=== PATIENT | male | born 1965 | race Caucasian/White ===

== ENCOUNTER 2021-03-03 13:25 | Emergency (ER) | payer OTHER ==
[~2021-03-03] VITALS: Ht 177.8 cm; Wt 119.3 kg
[~2021-03-03 13:25] MED LIST: AMBIEN5 MG; CLONAZEPAM2 MG; HUMALOG100 U/ML SQ; KLONOPIN2 MG/TAB; LANTUS100 U/ML; LEXAPRO20 MG; NEURONTIN300 MG PO; SEROQUEL300 MG PO; SEROQUEL400 MG; TRAZODONE HCL50 MG
[2021-03-03] MEDS ORDERED: BUSPIRONE HCL7.5 MG (13:31)
[2021-03-03] MEDS ORDERED: DEPAKOTE ER250 MG (13:31)
== END 2021-03-03 21:14 | disposition home or self-care (01) ==
LOC: ER 13:25
DX: E11.649 Type 2 diabetes mellitus with hypoglycemia without coma (principal)

== ENCOUNTER 2021-07-21 23:35 | Emergency (ER) | payer OTHER ==
[~2021-07-21] VITALS: Ht 177.8 cm; Wt 117.9 kg
[~2021-07-21 23:35] MED LIST changes: +BUSPIRONE HCL7.5 MG; +DEPAKOTE ER250 MG
[2021-07-21] MEDS ORDERED: LANTUS SOL100 UNIT/1 (23:45)
[2021-07-22] MEDS ORDERED: PROTECT PLUS S1 EACH PO (04:24)
[2021-07-22] MEDS ORDERED: MECLIZINE HCL25 MG PO (04:24)
== END 2021-07-22 04:27 ==
LOC: ER 23:35
DX: H81.10 Benign paroxysmal vertigo, unspecified ear (principal); R53.1 Weakness; R42 Dizziness and giddiness

== ENCOUNTER 2022-11-17 08:36 | Emergency (ER) | payer OTHER ==
[~2022-11-17] VITALS: Ht 177.8 cm; Wt 90.7 kg
[~2022-11-17 08:36] MED LIST changes: +LANTUS SOL100 UNIT/1; +MECLIZINE HCL25 MG PO; +PROTECT PLUS S1 EACH PO
== END 2022-11-17 12:21 | disposition home or self-care (01) ==
LOC: ER 08:36
DX: T14.8XXA Other injury of unspecified body region, initial encounter (principal); W18.30XA Fall on same level, unspecified, initial encounter; Y93.89 Activity, other specified; Y92.018 Other place in single-family (private) house as the place of occurrence of the external cause; Y99.9 Unspecified external cause status; E11.9 Type 2 diabetes mellitus without complications; Z79.4 Long term (current) use of insulin

== ENCOUNTER 2023-01-11 19:48 | Emergency (ER) | payer OTHER ==
[~2023-01-11] VITALS: Ht 177.8 cm; Wt 120.2 kg
== END 2023-01-12 00:10 | disposition home or self-care (01) ==
LOC: ER 19:48
DX: R73.9 Hyperglycemia, unspecified (principal); I10 Essential (primary) hypertension

== ENCOUNTER 2023-10-25 10:11 | Inpatient (IN) | payer OTHER ==
[~2023-10-25] VITALS: Ht 167.6 cm; Wt 104.3 kg
[~2023-10-25 10:11] MED LIST changes: +GABAPENTIN300 M2 PO
[2023-10-25 11:58] LABS: HEMATOCRIT 42.5 % (39.0-48.0); HEMOGLOBIN 13.3 g/dL (13-16.00); MEAN CELL VOLUME 89.5 fL (80.0-100.00); MEAN CORPUSCULAR HGB CONC 31.2 g/dl (32.0-36.0); PLATELET COUNT 273 K/uL (150-450); RED BLOOD COUNT 4.75 M/uL (4.00-6.00); RED CELL DISTRIBUTION WIDTH 15.2 % (11.5-14.5)
[2023-10-25 12:39] LABS: CALCIUM 9.6 mg/dL (8.5-10.1); CREATININE SERUM 1.96 mg/dL (0.70-1.30); GFR 35.06; POTASSIUM 5.55 mEq/L (3.5-5.1)
[2023-10-25 13:45] LABS: URINE APPEARANCE Clear; URINE BILIRRUBIN Negative (NEGATIVE); URINE BLOOD Negative; URINE COLOR Yellow; URINE LEUKOCYTE Negative; URINE NITRATE Negative; URINE PROTEIN Negative (NEGATIVE); URINE UROBILINOGEN 0.2 E.U./dl
[2023-10-25 13:49] LABS: URINE BACTERIA 12.5 uL (0.0-1933); URINE WBC 3.8 uL (0.0-23.2)
[2023-10-25 14:09] LABS: URINE GLUCOSE >=1000 MG/DL (NEGATIVE); URINE RBC 0.7 uL (0.0-20.8)
[2023-10-25 15:30] LABS: ABG PH 7.216 (7.35-7.45); ABG PO2 142.5 mmHg (80-100); ABG pCO2 16.5 mmHg (35-45); BASE EXCESS -18.6 mmol/l; BICARBONATE 6.6 mmol/l (23-25); SaO2 98.2 %; Tco2 7.1 mmol/l; allen test SATISFACTORY; o2 21 %; puncture site RADIAL LEFT
[2023-10-25 17:35] LABS: CALCIUM 8.9 mg/dL (8.5-10.1); CREATININE SERUM 1.78 mg/dL (0.70-1.30); GFR 39.18; POTASSIUM 3.58 mEq/L (3.5-5.1)
[2023-10-25 19:40] LABS: COCAINE NEGATIVE (NEGATIVE); METHADONE NEGATIVE (NEGATIVE); OPIATES NEGATIVE (NEGATIVE); THC ( Cannabinoids) NEGATIVE (NEGATIVE)
[2023-10-25 20:09] LABS: CREATININE SERUM 1.76 mg/dL (0.70-1.30); GFR 39.7; POTASSIUM 3.46 mEq/L (3.5-5.1)
[2023-10-25 20:14] LABS: INR 0.98; PROTHROMBIN TIME 10.3 SECONDS (9.0-11.5)
[2023-10-25 20:16] LABS: PARTIAL THROMBOPLASTIN TIME < 20.0 SECONDS (22.0-34.0)
[2023-10-26 05:03] LABS: ABG PO2 92.3 mmHg (80-100); ABG pCO2 37.2 mmHg (35-45); BASE EXCESS -1.8 mmol/l; BICARBONATE 22.5 mmol/l (23-25); SaO2 97.1 %; Tco2 23.7 mmol/l
[2023-10-26 05:04] LABS: allen test SATISFACTORY; o2 21 %; puncture site RADIAL LEFT
[2023-10-26 05:09] LABS: HEMATOCRIT 34.8 % (39.0-48.0); HEMOGLOBIN 11.8 g/dL (13-16.00); MEAN CELL VOLUME 84.1 fL (80.0-100.00); MEAN CORPUSCULAR HEMOGLOBIN 28.6 pg (27.00-32.0); PLATELET COUNT 253 K/uL (150-450); RED BLOOD COUNT 4.14 M/uL (4.00-6.00); RED CELL DISTRIBUTION WIDTH 14.3 % (11.5-14.5)
[2023-10-26 05:38] LABS: ALBUMIN 2.9 gm/dL (3.4-5.0); ALKALINE PHOSPHATASE 76 U/L (50-136); ALT/SGPT 15 U/L (12-78); AMYLASE 44 U/L (25-115); AST/SGOT 14 U/L (15-37); BILIRUBIN TOTAL 0.39 mg/dL (0.3-1.2); BILIRUBIN,CONJUGATED < 0.10 mg/dL (0.0-0.2); BILIRUBIN,UNCONJUGATED 0.29 mg/dL (0.0-0.6); LIPASE 41 U/L (13-75); PHOSPHOROUS 2.7 mg/dL (2.5-4.9); T4 FREE 0.93 NG/ML (0.76-1.46); TOTAL PROTEIN 5.7 gm/dL (6.4-8.2)
[2023-10-26 06:05] LABS: CHOL HDL RATIO 2.9 (0-5.0); CHOLESTEROL 174 mg/dL (0-200); HDL 59 mg/dl (40-60); LDL 94 mg/dl (0-130); TRIGLYCERIDES 103 mg/dL (0-150); VLDL 20 (0-39)
[2023-10-26 09:46] LABS: CALCIUM 8.5 mg/dL (8.5-10.1); CREATININE SERUM 1.35 mg/dL (0.70-1.30); GFR 53.91; POTASSIUM 3.74 mEq/L (3.5-5.1)
[2023-10-27 06:59] LABS: CALCIUM 8.6 mg/dL (8.5-10.1); CREATININE SERUM 1.14 mg/dL (0.70-1.30); GFR 65.52; POTASSIUM 3.74 mEq/L (3.5-5.1)
[2023-10-28 20:45] LABS: CALCIUM 8.2 mg/dL (8.5-10.1); CREATININE SERUM 0.84 mg/dL (0.70-1.30); GFR 93.21; POTASSIUM 3.72 mEq/L (3.5-5.1)
[2023-10-29] MEDS ORDERED: HUMULIN N100 UNIT/2 SUBCUTANEO ×2 (16:17)
[2023-10-29] MEDS ORDERED: SEROQUEL300 MG PO (16:17)
[2023-10-29] MEDS ORDERED: BUSPIRONE HCL7.5 MG PO (16:18)
[2023-10-29] MEDS ORDERED: DEPAKOTE ER250 MG PO (16:18)
[2023-10-29] MEDS ORDERED: CLONAZEPAM2 MG PO (16:18)
[2023-10-29] MEDS ORDERED: INSULIN LI100 UNIT/1 SUBCUTANEO (16:20)
== END 2023-10-29 18:00 | disposition home or self-care (01) | DRG 638 ==
LOC: ER 10:11 → ICU-2 18:43 → MEDJ 10-27 14:58 → MEDI 10-27 15:38
PROVIDERS: General Practice; Internal Medicine; Internal Medicine Endocrinology, Diabetes & Metabolism; ADMIT Internal Medicine; ATTEND Internal Medicine
DX: E10.10 Type 1 diabetes mellitus with ketoacidosis without coma (principal); F31.89 Other bipolar disorder; N17.8 Other acute kidney failure; I10 Essential (primary) hypertension; E86.0 Dehydration; E16.0 Drug-induced hypoglycemia without coma

== ENCOUNTER 2025-01-10 12:14 | Inpatient (IN) | payer OTHER ==
[~2025-01-10] VITALS: Ht 175.3 cm; Wt 1179.3 kg
[~2025-01-10 12:14] MED LIST changes: +BUSPIRONE HCL7.5 MG PO; +CLONAZEPAM2 MG PO; +DEPAKOTE ER250 MG PO; +HUMULIN N100 UNIT/2 SUBCUTANEO; +INSULIN LI100 UNIT/1 SUBCUTANEO
[2025-01-10] MEDS ORDERED: LABETALOL HCL 100 MG/20 ML ML ONE (12:21)
[2025-01-10] MEDS ORDERED: LEVALBUTEROL HCL 1.25 MG/3 ML SOLUTION IH ONE (12:27)
[2025-01-10] MEDS ORDERED: PIPERACILLIN/TAZOBACTAM SODIUM 3.375 GM VIAL IV ONE ×2 (12:28→12:30)
[2025-01-10] MEDS ORDERED: IPRATROPIUM BROMIDE 0.5 MG/2.5 ML AMPUL.NEB IH ONE (12:28)
[2025-01-10] MEDS ORDERED: METHYLPREDNISOLONE SOD SUCC 125 MG VIAL IV ONE (12:30)
[2025-01-10] MEDS ORDERED: 0.9 % SODIUM CHLORIDE 1,000 ML IV SCH ×2 (12:30→18:15)
[2025-01-10] MEDS ORDERED: IPRATROPIUM BROMIDE 0.5 MG/2.5 ML AMPUL.NEB IH SCH ×2 (12:30→22:39)
[2025-01-10] MEDS ORDERED: LABETALOL HCL 20MG/4ML SYRINGE IV ONE (12:30)
[2025-01-10] MEDS ORDERED: FAMOtidine 10 MG/ML (4ML VIAL) IV ONE (12:30)
[2025-01-10] MEDS ORDERED: LEVALBUTEROL HCL 1.25 MG/3 ML SOLUTION IH SCH (12:30)
--- NOTE | 2025-01-10 13:02 | NUR ---
SE RECIBE PTE ALERTA Y ORIENTADO SOLO EN PERSONA, ACOMPANADO DE ENFERMERO PERSONAL (CUIDADOR PRINCIPAL), QUIENES EN VIENEN EN AMBULANCIA POR HIPOACTIVIDAD E HIPERVENTILACION EN HOGAR DE RESICENCIA. SE OBSERVA PTE CON CANULA NASAL, MIRADA PERDIDA, RESPONDE A ESTIMULO VERBAL, ESTIMULO DE DOLOR, EXTREMIDADES SUPERIORES CON POCO MOVIMIENTOS, RESPIRACIONES ABDOMINALES Y PROFUNDAS, EXTREMIDADES INFERIORES RIGIDAS. SE CONECTA A MONITOR CARDIACO Y OXIMETRIA DE PULSO CONTINUA, SE REALIZAN VENOPUNCIONES PARA JESUS MANUEL DE MUESTRA, SE CANALIZA X2 EN AMBOS BRAZOS, CON ANGIOS #20, PATENTES, LIBRES DE EDEMA Y ERITEMA, SE COLOCA IV FLUIDS Y MEDICAMENTO ANDREY ORDEN MEDICA Y BAJO MEDIDAS ASEPTICAS. SE REALIZA EKG Y SE PRESENTA A DRA. RINCON. SE MANTIENE BAJO OBSERVACION POR CAMBIOS SIGNIFICATIVOS.
[2025-01-10 13:24] LABS: HEMOGLOBIN 15.8 g/dL (13-16.00); MEAN CELL VOLUME 91.1 fL (80.0-100.00); MEAN CORPUSCULAR HEMOGLOBIN 29.4 pg (27.00-32.0); MEAN CORPUSCULAR HGB CONC 32.3 g/dl (32.0-36.0); PLATELET COUNT 370 K/uL (150-450); RED BLOOD COUNT 5.38 M/uL (4.00-6.00); RED CELL DISTRIBUTION WIDTH 15.5 % (11.5-14.5)
[2025-01-10] MEDS ORDERED: DEPAKOTE ER500 MG PO (13:30)
[2025-01-10] MEDS ORDERED: GRALISE600 MG PO (13:30)
[2025-01-10] MEDS ORDERED: CLONAZEPAM1 MG PO (13:31)
[2025-01-10] MEDS ORDERED: LIPITOR40 M1 PO (13:31)
[2025-01-10] MEDS ORDERED: JARDIANCE10 MG PO (13:32)
[2025-01-10] MEDS ORDERED: XULTOPHY 100 UNI3 ML SUBCUTANEO (13:35)
[2025-01-10] MEDS ORDERED: HUMULIN R100 UNIT/1 SUBCUTANEO (13:37)
[2025-01-10] MEDS ORDERED: RISPERDAL2 MG PO (13:37)
[2025-01-10 13:38] LABS: PH,URINE 5.5 (5.0-8.0); URINE APPEARANCE Clear; URINE BILIRRUBIN Negative (NEGATIVE); URINE BLOOD Negative; URINE COLOR Yellow; URINE LEUKOCYTE Negative; URINE NITRATE Negative; URINE PROTEIN 30 (NEGATIVE); URINE UROBILINOGEN 0.2 E.U./dl
[2025-01-10 13:42] LABS: URINE BACTERIA 30.5 uL (0.0-1933); URINE CAST 2.65 uL (0.0-1.40); URINE EPITHELIAL CELLS 3.1 uL (0.0-38.8); URINE WBC 3.6 uL (0.0-23.2)
[2025-01-10 13:46] LABS: ERYTHROCYTE SEDIMENTATION RATE 22 mm/hr
[2025-01-10 13:49] LABS: INR 0.95; PARTIAL THROMBOPLASTIN TIME 29.9 SECONDS (22.0-34.0); PROTHROMBIN TIME 10.4 SECONDS (9.0-11.5)
[2025-01-10 13:51] LABS: URINE GLUCOSE >=1000 MG/DL (NEGATIVE); URINE KETONE >=160 (NEGATIVE); URINE RBC 0.4 uL (0.0-20.8)
--- NOTE | 2025-01-10 14:16 | NUR ---
PERSONAL DE RADIOGRAFIA REALIZA ESTUDIOS PENDIENTES.
[2025-01-10] MEDS ORDERED: INSULIN LISPRO 1,000 UNIT/10 ML UNITS SUBCUTANEO STA (14:29)
[2025-01-10 14:45] LABS: ALBUMIN 3.3 gm/dL (3.4-5.0); BILIRUBIN TOTAL 0.6 mg/dL (0.3-1.2); CALCIUM 9.8 mg/dL (8.5-10.1); CREATININE SERUM 1.39 mg/dL (0.70-1.30); GFR 51.78; GLOBULINA 3.4 G/DL (2.4-3.5); POTASSIUM 4.61 mEq/L (3.5-5.1); TOTAL PROTEIN 6.7 gm/dL (6.4-8.2)
[2025-01-10 14:47] LABS: ABG PH 7.138 (7.35-7.45)
[2025-01-10 14:48] LABS: ABG PO2 147.5 mmHg (80-100); ABG pCO2 7.5 mmHg (35-45); BASE EXCESS -23.7 mmol/l; BICARBONATE 2.5 mmol/l (23-25); SaO2 97.9 %; Tco2 2.7 mmol/l; allen test SATISFACTORY; o2 21 %; puncture site RADIAL RIGHT
[2025-01-10 15:01] LABS: C-REACTIVE PROTEIN 3.74 MG/DL (0.00-0.29)
[2025-01-10] MEDS ORDERED: DEXTROSE 50 % IN WATER 0.5 G/ML DISP.SYRIN IV ONE (17:35)
[2025-01-10] MEDS ORDERED: SODIUM BICARBONATE 50MEQ/50ML VIAL IV ONE ×2 (17:35→23:45)
[2025-01-10] MEDS ORDERED: INSULIN REGULAR, HUMAN 100 UNITS in 0.9 % SODIUM CHLORIDE 100 ML IV SCH (18:00)
[2025-01-10] MEDS ORDERED: SODIUM BICARBONATE 100 MEQ in DEXTROSE 5 % IN WATER 1,000 ML IV SCH (18:00)
[2025-01-10] MEDS ORDERED: SODIUM BICARBONATE 1 MEQ/ML DISP.SYRIN 50ML IV ONE (18:00)
[2025-01-10] MEDS ORDERED: POTASSIUM CHLORIDE/NACL 0.9% 1,000 ML IV NR (18:00)
[2025-01-10] MEDS ORDERED: ENOXAPARIN SODIUM 40 MG/0.4 ML SYRINGE SUBCUTANEO SCH (18:01)
[2025-01-10] MEDS ORDERED: ACETAMINOPHEN 500 MG GEL..CAP PO PRN (18:15)
[2025-01-10] MEDS ORDERED: PIPERACILLIN/TAZOBACTAM SODIUM 3.375 GM in DEXTROSE 5 % IN WATER 100 ML IV SCH (18:16)
[2025-01-10] MEDS ORDERED: DIVALPROEX SODIUM 500 MG TABLET.DR PO SCH (18:17)
[2025-01-10] MEDS ORDERED: ONDANSETRON HCL 4 MG in 0.9 % SODIUM CHLORIDE 50 ML IV PRN (18:30)
[2025-01-10 19:00] VITALS: BP 139/74; O2SAT 100
[2025-01-10] MEDS ORDERED: POTASSIUM CHLORIDE/NACL 0.9% 20 MEQ/1,000 ML PIGGYBAG IV ONE (19:27)
[2025-01-10 20:00] VITALS: BP 117/63; O2SAT 100
[2025-01-10 20:43] VITALS: BP 117/63
[2025-01-10 21:00] VITALS: BP 112/69; O2SAT 100
[2025-01-10] MEDS ORDERED: ENOXAPARIN SODIUM 40 MG/0.4 ML SYRINGE SUBCUTANEO ONE (21:24)
[2025-01-10 21:46] LABS: MAGNESIUM 1.6 mg/dL (1.8-2.4); PHOSPHOROUS 2.7 mg/dL (2.5-4.9)
[2025-01-10 22:00] VITALS: BP 124/66; O2SAT 100
[2025-01-10 22:10] LABS: CALCIUM 9.2 mg/dL (8.5-10.1); CREATININE SERUM 1.11 mg/dL (0.70-1.30); GFR 67.12; POTASSIUM 3.07 mEq/L (3.5-5.1)
[2025-01-10 22:29] LABS: ABG PH 7.304 (7.35-7.45); ABG PO2 192.7 mmHg (80-100); ABG pCO2 19.2 mmHg (35-45)
[2025-01-10 22:30] LABS: BASE EXCESS -14.4 mmol/l; BICARBONATE 9.3 mmol/l (23-25); Tco2 9.9 mmol/l; allen test SATISFACTORY; o2 32 %; puncture site RADIAL LEFT
[2025-01-10 22:32] LABS: SaO2 99.5 %
[2025-01-10] MEDS ORDERED: SODIUM CHLORIDE 0.45 % 1,000 ML IV SCH (22:45)
[2025-01-11] MEDS ORDERED: PIPERACILLIN/TAZOBACTAM SODIUM 3.375 GM VIAL IV ONE (00:01)
[2025-01-11 01:04] LABS: COCAINE NEGATIVE (NEGATIVE); METHADONE NEGATIVE (NEGATIVE); OPIATES NEGATIVE (NEGATIVE); THC ( Cannabinoids) POSITIVE (NEGATIVE)
[2025-01-11 04:43] VITALS: BP 118/69; O2SAT 100
[2025-01-11 06:49] LABS: HEMOGLOBIN 13.8 g/dL (13-16.00); MEAN CELL VOLUME 85.3 fL (80.0-100.00); MEAN CORPUSCULAR HEMOGLOBIN 29.4 pg (27.00-32.0); MEAN CORPUSCULAR HGB CONC 34.5 g/dl (32.0-36.0); PLATELET COUNT 262 K/uL (150-450); RED BLOOD COUNT 4.69 M/uL (4.00-6.00); RED CELL DISTRIBUTION WIDTH 14.8 % (11.5-14.5)
[2025-01-11 07:21] VITALS: BP 126/75; O2SAT 100
[2025-01-11 07:41] LABS: ALBUMIN 2.6 gm/dL (3.4-5.0); BILIRUBIN TOTAL 0.3 mg/dL (0.3-1.2); CALCIUM 8.6 mg/dL (8.5-10.1); CREATININE SERUM 1.08 mg/dL (0.70-1.30); GFR 69.28; GLOBULINA 2.6 G/DL (2.4-3.5); POTASSIUM 3.37 mEq/L (3.5-5.1); TOTAL PROTEIN 5.2 gm/dL (6.4-8.2); TSH 0.909 uIU/mL (0.358-3.74)
[2025-01-11] MEDS ORDERED: FAMOTIDINE/PF 20 MG in 0.9 % SODIUM CHLORIDE 8 ML IV PUSH SCH (09:00)
[2025-01-11] MEDS ORDERED: RISPERIDONE 1 MG TABLET PO SCH (09:00)
[2025-01-11] MEDS ORDERED: DEXTROSE 50 % IN WATER 0.5 G/ML DISP.SYRIN IV PRN (09:45)
[2025-01-11] MEDS ORDERED: INSULIN LISPRO 1,000 UNIT/10 ML UNITS SUBCUTANEO PRN (09:45)
[2025-01-11 12:12] VITALS: BP 121/72; O2SAT 98
[2025-01-11] MEDS ORDERED: MAGNESIUM SULFATE IN WATER 2 GM/50 ML PIGGYBAG IV NR (15:15)
[2025-01-11 15:25] VITALS: BP 130/76; O2SAT 99
[2025-01-11] MEDS ORDERED: CHLORHEXIDINE GLUCONATE 120 ML BOTTLE TOP SCH (17:00)
[2025-01-11] MEDS ORDERED: LINEZOLID IN DEXTROSE 5% 600 MG/300 ML PIGGYBAG IV NR (17:00)
[2025-01-11] MEDS ORDERED: POTASSIUM BICARBONATE/CIT AC 25 MEQ TABLET.EFF PO SCH (17:00)
[2025-01-11] MEDS ORDERED: LEVALBUTEROL HCL 0.63 MG/3 ML SOLUTION IH SCH (18:00)
[2025-01-11 18:26] LABS: ABG PH 7.363 (7.35-7.45); ABG PO2 87.6 mmHg (80-100); ABG pCO2 34.8 mmHg (35-45); BASE EXCESS -5.1 mmol/l; BICARBONATE 19.4 mmol/l (23-25); SaO2 96.1 %; Tco2 20.4 mmol/l
[2025-01-11 18:32] LABS: allen test SATISFACTORY; o2 21 %; puncture site RADIAL LEFT
[2025-01-11] MEDS ORDERED: ASPIRIN 81 MG TAB.CHEW PO SCH (19:45)
[2025-01-11 20:00] VITALS: BP 131/79; O2SAT 100
[2025-01-11 23:27] VITALS: BP 131/89; O2SAT 99
[2025-01-12] VITALS (7 sets, daily range): BP systolic 131–171; BP diastolic 78–95; O2SAT 95–99
[2025-01-12] MEDS ORDERED: LINEZOLID IN DEXTROSE 5% 600 MG/300 ML PIGGYBAG IV SCH (05:00)
[2025-01-12 07:34] LABS: HEMATOCRIT 39.7 % (39.0-48.0); HEMOGLOBIN 13.2 g/dL (13-16.00); MEAN CELL VOLUME 86.7 fL (80.0-100.00); MEAN CORPUSCULAR HEMOGLOBIN 28.9 pg (27.00-32.0); MEAN CORPUSCULAR HGB CONC 33.4 g/dl (32.0-36.0); PLATELET COUNT 244 K/uL (150-450); RED BLOOD COUNT 4.58 M/uL (4.00-6.00); RED CELL DISTRIBUTION WIDTH 14.5 % (11.5-14.5)
[2025-01-12 08:03] LABS: ALBUMIN 2.5 gm/dL (3.4-5.0); CALCIUM 8.5 mg/dL (8.5-10.1); CREATININE SERUM 0.83 mg/dL (0.70-1.30); GFR 93.88; MAGNESIUM 2.3 mg/dL (1.8-2.4); PHOSPHOROUS 2.3 mg/dL (2.5-4.9); POTASSIUM 3.79 mEq/L (3.5-5.1)
[2025-01-12] MEDS ORDERED: ENOXAPARIN SODIUM 40 MG/0.4 ML SYRINGE SUBCUTANEO SCH (09:00)
[2025-01-12] MEDS ORDERED: ENOXAPARIN SODIUM 40 MG/0.4 ML SYRINGE SUBCUTANEO NR (14:15)
[2025-01-13] VITALS (8 sets, daily range): BP systolic 147–163; BP diastolic 70–87; O2SAT 90–99
[2025-01-13] MEDS ORDERED: ENOXAPARIN SODIUM 40 MG/0.4 ML SYRINGE SUBCUTANEO SCH (09:00)
[2025-01-14] VITALS (9 sets, daily range): BP systolic 130–131; BP diastolic 70–77; O2SAT 98–99
[2025-01-14] MEDS ORDERED: NAPH,MB-DB/K PH,MBDB 1 PKT PACKET PO SCH (13:00)
[2025-01-14] MEDS ORDERED: METOPROLOL TARTRATE 5MG/5ML AMPUL IV PRN (14:30)
[2025-01-14] MEDS ORDERED: SODIUM BICARBONATE 50MEQ/50ML VIAL IV ONE ×2 (15:52→15:53)
[2025-01-14] MEDS ORDERED: SODIUM BICARBONATE 50 MEQ IV STA (16:38)
[2025-01-14] MEDS ORDERED: SODIUM BICARBONATE 100 MEQ in DEXTROSE 5 % IN WATER 250 ML IV SCH (16:45)
[2025-01-14] MEDS ORDERED: SODIUM BICARBONATE 50MEQ/50ML VIAL IV STA (16:54)
[2025-01-14] MEDS ORDERED: SODIUM CHLORIDE 0.45 % 500 ML IV ONE (17:00)
[2025-01-14 22:20] LABS: ABG PH 6.972 (7.35-7.45); ABG PO2 203.6 mmHg (80-100); ABG pCO2 10.1 mmHg (35-45); BASE EXCESS -27.6 mmol/l; BICARBONATE 2.3 mmol/l (23-25); SaO2 98.5 %; Tco2 2.6 mmol/l; allen test SATISFACTORY; o2 50 %; puncture site RADIAL LEFT
[2025-01-15] VITALS (9 sets, daily range): BP systolic 122–137; BP diastolic 6–71; O2SAT 99–100
[2025-01-15 00:05] LABS: URINE APPEARANCE Turbid; URINE BILIRRUBIN Negative (NEGATIVE); URINE BLOOD Large; URINE COLOR Yellow; URINE LEUKOCYTE Negative; URINE NITRATE Negative; URINE UROBILINOGEN 0.2 E.U./dl
[2025-01-15 00:08] LABS: URINE BACTERIA 62.4 uL (0.0-1933); URINE CAST 3.38 uL (0.0-1.40); URINE EPITHELIAL CELLS 106.3 uL (0.0-38.8); URINE RBC 1108.3 uL (0.0-20.8); URINE WBC 56.8 uL (0.0-23.2)
[2025-01-15] MEDS ORDERED: INSULIN REGULAR, HUMAN 1,000 UNIT/10 ML UNITS IV STA (00:17)
[2025-01-15] MEDS ORDERED: INSULIN REGULAR, HUMAN 1,000 UNIT/10 ML UNITS IV SCH (00:30)
[2025-01-15 00:48] LABS: URINE GLUCOSE >=1000 MG/DL (NEGATIVE); URINE KETONE 40 (NEGATIVE); URINE PROTEIN 100 (NEGATIVE)
[2025-01-15] MEDS ORDERED: SODIUM BICARBONATE 50MEQ/50ML VIAL IV ONE (00:55)
[2025-01-15 04:42] LABS: ALBUMIN 2.2 gm/dL (3.4-5.0); BILIRUBIN TOTAL 0.48 mg/dL (0.3-1.2); CALCIUM 8.5 mg/dL (8.5-10.1); CREATININE SERUM 1.31 mg/dL (0.70-1.30); GFR 55.44; GLOBULINA 2.8 G/DL (2.4-3.5); POTASSIUM 4.51 mEq/L (3.5-5.1)
[2025-01-15] MEDS ORDERED: CITRIC ACID/SODIUM CITRATE 30 ML BLIST.PACK PO SCH (09:00)
[2025-01-15] MEDS ORDERED: MEROPENEM 500 MG/VIAL VIAL IV STA (15:15)
[2025-01-15] MEDS ORDERED: FLUCONAZOLE IN NACL,ISO-OSM 200 MG/100 ML PIGGYBAG IV STA (17:37)
[2025-01-15 18:49] LABS: ABG PH 7.345 (7.35-7.45); ABG PO2 164.9 mmHg (80-100); ABG pCO2 31.1 mmHg (35-45); BASE EXCESS -7.7 mmol/l; BICARBONATE 16.6 mmol/l (23-25); SaO2 99.3 %; Tco2 17.6 mmol/l; allen test SATISFACTORY; o2 50 %; puncture site RADIAL LEFT
[2025-01-15 19:40] LABS: HEMATOCRIT 40.1 % (39.0-48.0); HEMOGLOBIN 13.2 g/dL (13-16.00); MEAN CELL VOLUME 86.7 fL (80.0-100.00); MEAN CORPUSCULAR HEMOGLOBIN 28.5 pg (27.00-32.0); MEAN CORPUSCULAR HGB CONC 32.9 g/dl (32.0-36.0); PLATELET COUNT 174 K/uL (150-450); RED BLOOD COUNT 4.62 M/uL (4.00-6.00)
[2025-01-15 19:43] LABS: CALCIUM 8.3 mg/dL (8.5-10.1); CREATININE SERUM 2.13 mg/dL (0.70-1.30); GFR 31.64
[2025-01-15 19:52] LABS: POTASSIUM 2.96 mEq/L (3.5-5.1)
[2025-01-15] MEDS ORDERED: MEROPENEM 500 MG/VIAL VIAL IV SCH (20:00)
[2025-01-15] MEDS ORDERED: POTASSIUM CHLORIDE IN WATER 40 MEQ/100 ML PIGGYBAG IV ONE (23:30)
[2025-01-15] MEDS ORDERED: DEXTROSE 50 % IN WATER 0.5 G/ML DISP.SYRIN IV PRN (23:45)
[2025-01-15] MEDS ORDERED: INSULIN LISPRO 1,000 UNIT/10 ML UNITS SUBCUTANEO PRN (23:45)
[2025-01-15] MEDS ORDERED: POTASSIUM CHLORIDE IV SCH (23:45)
[2025-01-15] MEDS ORDERED: D5W IV SCH (23:45)
[2025-01-15] MEDS ORDERED: INSULIN NPH HUMAN ISOPHANE 1,000 UNITS/10 ML UNITS SUBCUTANEO STA (23:49)
[2025-01-16] VITALS (10 sets, daily range): BP systolic 131–148; BP diastolic 67–83; O2SAT 97–100
[2025-01-16] MEDS ORDERED: POTASSIUM CHLORIDE/D5-0.45NACL 1,000 ML IV ONE (01:30)
[2025-01-16 07:22] LABS: CALCIUM 7.8 mg/dL (8.5-10.1); CREATININE SERUM 2.73 mg/dL (0.70-1.30); GFR 23.76
[2025-01-16 08:33] LABS: POTASSIUM 2.47 mEq/L (3.5-5.1)
[2025-01-16] MEDS ORDERED: INSULIN NPH HUMAN ISOPHANE 1,000 UNITS/10 ML UNITS SUBCUTANEO SCH (09:00)
[2025-01-16] MEDS ORDERED: FLUCONAZOLE IN NACL,ISO-OSM 200 MG/100 ML PIGGYBAG IV SCH (09:00)
[2025-01-16] MEDS ORDERED: POTASSIUM CHLORIDE 10 MEQ CAPSULE PO STA (10:44)
[2025-01-16] MEDS ORDERED: SODIUM CHLORIDE 0.45 % 1,000 ML IV SCH (11:30)
[2025-01-16] MEDS ORDERED: POTASSIUM CHLORIDE/D5W 1,000 ML IV NR (15:15)
[2025-01-16 18:08] LABS: HEMATOCRIT 34.4 % (39.0-48.0); HEMOGLOBIN 11.9 g/dL (13-16.00); MEAN CORPUSCULAR HEMOGLOBIN 29.1 pg (27.00-32.0); MEAN CORPUSCULAR HGB CONC 34.6 g/dl (32.0-36.0); PLATELET COUNT 135 K/uL (150-450); RED BLOOD COUNT 4.09 M/uL (4.00-6.00); RED CELL DISTRIBUTION WIDTH 15.1 % (11.5-14.5)
[2025-01-16] MEDS ORDERED: POTASSIUM CHLORIDE 10 MEQ CAPSULE PO SCH (21:00)
[2025-01-17 04:00] VITALS: BP 141/79; O2SAT 97
[2025-01-17 06:50] LABS: HEMATOCRIT 36.2 % (39.0-48.0); HEMOGLOBIN 12.3 g/dL (13-16.00); MEAN CELL VOLUME 83.5 fL (80.0-100.00); MEAN CORPUSCULAR HEMOGLOBIN 28.4 pg (27.00-32.0); MEAN CORPUSCULAR HGB CONC 34.1 g/dl (32.0-36.0); PLATELET COUNT 137 K/uL (150-450); RED BLOOD COUNT 4.34 M/uL (4.00-6.00); RED CELL DISTRIBUTION WIDTH 14.3 % (11.5-14.5)
[2025-01-17 06:55] LABS: CALCIUM 7.9 mg/dL (8.5-10.1); CREATININE SERUM 3.5 mg/dL (0.70-1.30); GFR 17.84; MAGNESIUM 1.8 mg/dL (1.8-2.4); PHOSPHOROUS 2.4 mg/dL (2.5-4.9)
[2025-01-17 07:03] LABS: POTASSIUM 2.41 mEq/L (3.5-5.1)
[2025-01-17 07:15] VITALS: BP 141/76; O2SAT 97
[2025-01-17] MEDS ORDERED: POTASSIUM CHLORIDE/D5-0.45NACL 1,000 ML IV NR (07:45)
[2025-01-17] MEDS ORDERED: POTASSIUM CHLORIDE/D5-0.9%NACL 20 MEQ/1,000 ML PIGGYBAG IV SCH (08:00)
[2025-01-17] MEDS ORDERED: POTASSIUM CHLORIDE-0.45% NACL 20 MEQ/1,000 ML PIGGYBAG IV SCH (08:30)
[2025-01-17] MEDS ORDERED: INSULIN NPH HUMAN ISOPHANE 1,000 UNITS/10 ML UNITS SUBCUTANEO SCH ×3 (09:00→21:00)
[2025-01-17 12:00] VITALS: BP 147/81; O2SAT 97
[2025-01-17 16:00] VITALS: BP 153/78; O2SAT 98
[2025-01-17 20:00] VITALS: BP 138/66; O2SAT 98
[2025-01-17 23:09] VITALS: BP 150/88; O2SAT 98
[2025-01-18 04:00] VITALS: BP 150/89; O2SAT 97
[2025-01-18 06:47] LABS: HEMATOCRIT 33.9 % (39.0-48.0); HEMOGLOBIN 12.2 g/dL (13-16.00); MEAN CORPUSCULAR HEMOGLOBIN 29.3 pg (27.00-32.0); MEAN CORPUSCULAR HGB CONC 36.1 g/dl (32.0-36.0); RED BLOOD COUNT 4.18 M/uL (4.00-6.00); RED CELL DISTRIBUTION WIDTH 14.6 % (11.5-14.5)
[2025-01-18 06:50] LABS: PLATELET COUNT 115 K/uL (150-450)
[2025-01-18 07:09] VITALS: BP 158/97; O2SAT 98
[2025-01-18 07:15] LABS: ALBUMIN 1.8 gm/dL (3.4-5.0); CALCIUM 7.9 mg/dL (8.5-10.1); CREATININE SERUM 3.78 mg/dL (0.70-1.30); GFR 16.32; MAGNESIUM 1.6 mg/dL (1.8-2.4); PHOSPHOROUS 2.8 mg/dL (2.5-4.9)
[2025-01-18 07:30] LABS: POTASSIUM 2.69 mEq/L (3.5-5.1)
[2025-01-18] MEDS ORDERED: POTASSIUM BICARBONATE/CIT AC 25 MEQ TABLET.EFF PO SCH (09:00)
[2025-01-18] MEDS ORDERED: INSULIN NPH HUMAN ISOPHANE 1,000 UNITS/10 ML UNITS SUBCUTANEO SCH (09:00)
[2025-01-18] MEDS ORDERED: ENOXAPARIN SODIUM 30 MG/0.3 ML SYRINGE SUBCUTANEO SCH (09:00)
[2025-01-18] MEDS ORDERED: POTASSIUM CHLORIDE IN 0.9%NACL 1,000 ML IV SCH (09:15)
[2025-01-18] MEDS ORDERED: MAGNESIUM SULFATE/D5W 100 ML IV NR (10:15)
[2025-01-18] MEDS ORDERED: POTASSIUM CHLORIDE IN WATER 100 ML IV NR (11:15)
[2025-01-18 12:00] VITALS: BP 141/80; O2SAT 99
[2025-01-18] MEDS ORDERED: FLUCONAZOLE IN NACL,ISO-OSM 2 MG/ML ML IV SCH (12:00)
[2025-01-18 16:00] VITALS: BP 135/72; O2SAT 98
[2025-01-18] MEDS ORDERED: SPIRONOLACTONE 25 MG TABLET PO SCH (18:57)
[2025-01-18 20:00] VITALS: BP 134/76; O2SAT 100
[2025-01-18 23:41] VITALS: BP 132/71; O2SAT 99
[2025-01-19 04:10] VITALS: BP 132/78; O2SAT 100
[2025-01-19 06:55] LABS: HEMATOCRIT 33.2 % (39.0-48.0); HEMOGLOBIN 11.7 g/dL (13-16.00); MEAN CELL VOLUME 83.1 fL (80.0-100.00); MEAN CORPUSCULAR HEMOGLOBIN 29.3 pg (27.00-32.0); MEAN CORPUSCULAR HGB CONC 35.3 g/dl (32.0-36.0); RED CELL DISTRIBUTION WIDTH 14.2 % (11.5-14.5)
[2025-01-19 07:03] LABS: PLATELET COUNT 101 K/uL (150-450)
[2025-01-19 07:24] VITALS: BP 141/79; O2SAT 98
[2025-01-19 07:41] LABS: ALBUMIN 1.7 gm/dL (3.4-5.0); BILIRUBIN TOTAL 0.5 mg/dL (0.3-1.2); CALCIUM 7.8 mg/dL (8.5-10.1); GFR 14.37; GLOBULINA 2.1 G/DL (2.4-3.5); POTASSIUM 3.83 mEq/L (3.5-5.1); TOTAL PROTEIN 3.8 gm/dL (6.4-8.2)
[2025-01-19] MEDS ORDERED: DEXTROSE 5 %-0.45 % SOD CHLORD 1,000 ML IV SCH (08:00)
[2025-01-19 08:02] LABS: CREATININE SERUM 4.22 mg/dL (0.70-1.30)
[2025-01-19] MEDS ORDERED: INSULIN NPH HUMAN ISOPHANE 1,000 UNITS/10 ML UNITS SUBCUTANEO SCH ×4 (09:00→21:00)
[2025-01-19 13:20] VITALS: BP 134/75; O2SAT 98
[2025-01-19 15:29] VITALS: BP 128/81; O2SAT 98
[2025-01-19 20:00] VITALS: BP 135/78; O2SAT 100
[2025-01-19 20:36] VITALS: BP 150/82; O2SAT 100
[2025-01-20] VITALS (8 sets, daily range): BP systolic 147–151; BP diastolic 82–93; O2SAT 100
[2025-01-20 15:50] LABS: ALBUMIN 1.8 gm/dL (3.4-5.0); BILIRUBIN TOTAL 0.44 mg/dL (0.3-1.2); CALCIUM 7.9 mg/dL (8.5-10.1); GFR 13.11; GLOBULINA 2.2 G/DL (2.4-3.5); POTASSIUM 4.26 mEq/L (3.5-5.1)
[2025-01-20 16:02] LABS: CREATININE SERUM 4.57 mg/dL (0.70-1.30)
[2025-01-21] VITALS (9 sets, daily range): BP systolic 137–160; BP diastolic 79–86; O2SAT 97–100
[2025-01-21 07:44] LABS: HEMATOCRIT 34.1 % (39.0-48.0); HEMOGLOBIN 11.8 g/dL (13-16.00); MEAN CELL VOLUME 83.6 fL (80.0-100.00); MEAN CORPUSCULAR HEMOGLOBIN 28.9 pg (27.00-32.0); MEAN CORPUSCULAR HGB CONC 34.5 g/dl (32.0-36.0); RED BLOOD COUNT 4.08 M/uL (4.00-6.00); RED CELL DISTRIBUTION WIDTH 14.5 % (11.5-14.5)
[2025-01-21 07:52] LABS: PLATELET COUNT 115 K/uL (150-450)
[2025-01-21 08:01] LABS: ALBUMIN 1.8 gm/dL (3.4-5.0); BILIRUBIN TOTAL 0.43 mg/dL (0.3-1.2); GFR 12.91; GLOBULINA 2.3 G/DL (2.4-3.5); POTASSIUM 4.22 mEq/L (3.5-5.1); TOTAL PROTEIN 4.1 gm/dL (6.4-8.2)
[2025-01-21 08:58] LABS: CREATININE SERUM 4.63 mg/dL (0.70-1.30)
[2025-01-21] MEDS ORDERED: SODIUM CHLORIDE 0.45 % 1,000 ML IV SCH (10:00)
[2025-01-21] MEDS ORDERED: FUROsemide 40 MG/4 ML VIAL IV NR (16:00)
[2025-01-22] VITALS (8 sets, daily range): BP systolic 142–178; BP diastolic 75–82; O2SAT 94–100
[2025-01-22 07:48] LABS: INR 0.99; PARTIAL THROMBOPLASTIN TIME 23.3 SECONDS (22.0-34.0); PROTHROMBIN TIME 10.8 SECONDS (9.0-11.5)
[2025-01-22 07:51] LABS: HEMOGLOBIN 9.8 g/dL (13-16.00); MEAN CELL VOLUME 83.3 fL (80.0-100.00); MEAN CORPUSCULAR HEMOGLOBIN 29.2 pg (27.00-32.0); MEAN CORPUSCULAR HGB CONC 35.1 g/dl (32.0-36.0); RED BLOOD COUNT 3.36 M/uL (4.00-6.00); RED CELL DISTRIBUTION WIDTH 14.6 % (11.5-14.5)
[2025-01-22 07:58] LABS: ALBUMIN 1.6 gm/dL (3.4-5.0); CALCIUM 7.7 mg/dL (8.5-10.1); GFR 11.76; PHOSPHOROUS 3.4 mg/dL (2.5-4.9); POTASSIUM 4.07 mEq/L (3.5-5.1)
[2025-01-22 08:36] LABS: PLATELET COUNT 98 K/uL (150-450)
[2025-01-22 09:05] LABS: CREATININE SERUM 5.02 mg/dL (0.70-1.30)
[2025-01-22 13:36] LABS: ABG PH 7.433 (7.35-7.45); ABG PO2 84.1 mmHg (80-100); ABG pCO2 31.1 mmHg (35-45); BASE EXCESS -2.8 mmol/l; BICARBONATE 20.3 mmol/l (23-25); SaO2 96.5 %; Tco2 21.2 mmol/l
[2025-01-22 13:38] LABS: allen test SATISFACTORY; o2 21 %; puncture site RADIAL RIGHT
[2025-01-22] MEDS ORDERED: MEGESTROL ACETATE 40 MG TABLET PO SCH (17:00)
[2025-01-23] VITALS (7 sets, daily range): BP systolic 145–147; BP diastolic 73–77; O2SAT 97–100
[2025-01-23 07:06] LABS: HEMATOCRIT 27.1 % (39.0-48.0); HEMOGLOBIN 9.7 g/dL (13-16.00); MEAN CELL VOLUME 82.8 fL (80.0-100.00); MEAN CORPUSCULAR HEMOGLOBIN 29.6 pg (27.00-32.0); MEAN CORPUSCULAR HGB CONC 35.8 g/dl (32.0-36.0); PLATELET COUNT 140 K/uL (150-450); RED BLOOD COUNT 3.28 M/uL (4.00-6.00); RED CELL DISTRIBUTION WIDTH 14.7 % (11.5-14.5)
[2025-01-23 07:43] LABS: ALBUMIN 1.6 gm/dL (3.4-5.0); BILIRUBIN TOTAL 0.37 mg/dL (0.3-1.2); CALCIUM 7.9 mg/dL (8.5-10.1); GFR 11.17; GLOBULINA 2.1 G/DL (2.4-3.5); POTASSIUM 4.35 mEq/L (3.5-5.1); TOTAL PROTEIN 3.7 gm/dL (6.4-8.2)
[2025-01-23 08:26] LABS: CREATININE SERUM 5.25 mg/dL (0.70-1.30)
[2025-01-24] VITALS (8 sets, daily range): BP systolic 161; BP diastolic 82; O2SAT 97–100
[2025-01-24 06:53] LABS: CALCIUM 7.8 mg/dL (8.5-10.1); GFR 10.18; POTASSIUM 4.23 mEq/L (3.5-5.1)
[2025-01-24 07:21] LABS: CREATININE SERUM 5.69 mg/dL (0.70-1.30)
[2025-01-24] MEDS ORDERED: 0.9 % SODIUM CHLORIDE 1,000 ML IV SCH (15:30)
[2025-01-25] VITALS (9 sets, daily range): BP systolic 140–193; BP diastolic 79–92; O2SAT 98–100
[2025-01-25 05:55] LABS: CALCIUM 7.8 mg/dL (8.5-10.1); GFR 10.84; POTASSIUM 4.61 mEq/L (3.5-5.1)
[2025-01-25 06:28] LABS: CREATININE SERUM 5.39 mg/dL (0.70-1.30)
[2025-01-26] VITALS (9 sets, daily range): BP systolic 158–180; BP diastolic 78–99; O2SAT 98–100
[2025-01-26] MEDS ORDERED: INSULIN NPH HUMAN ISOPHANE 1,000 UNITS/10 ML UNITS SUBCUTANEO SCH ×2 (08:00→21:00)
[2025-01-26 18:03] LABS: HEMATOCRIT 26.8 % (39.0-48.0); HEMOGLOBIN 9.2 g/dL (13-16.00); MEAN CELL VOLUME 83.9 fL (80.0-100.00); MEAN CORPUSCULAR HEMOGLOBIN 28.8 pg (27.00-32.0); MEAN CORPUSCULAR HGB CONC 34.4 g/dl (32.0-36.0); PLATELET COUNT 272 K/uL (150-450); RED CELL DISTRIBUTION WIDTH 14.5 % (11.5-14.5)
[2025-01-26 18:28] LABS: ALBUMIN 1.7 gm/dL (3.4-5.0); ALKALINE PHOSPHATASE 79 U/L (50-136); ANION GAP 11 (10.0-20.0); AST/SGOT 22 U/L (15-37); BILIRUBIN TOTAL 0.35 mg/dL (0.3-1.2); BLOOD UREA NITROGEN 67 mg/dL (7-18); CALCIUM 7.8 mg/dL (8.5-10.1); CARBON DIOXIDE 23 mEq/L (21-32); CHLORIDE 107 mmol/L (98-107); GLOBULINA 2.4 G/DL (2.4-3.5); GLUCOSE FASTING 106 mg/dL (65-100); OSMOLALITY SERUM 294 MOSM/KG (275-295); POTASSIUM 3.97 mEq/L (3.5-5.1); SODIUM 137 mmol/L (136-145); TOTAL PROTEIN 4.1 gm/dL (6.4-8.2)
[2025-01-26 19:00] LABS: ALT/SGPT < 6 U/L (12-78); BUN CREA RATIO 14 (7.0-25.0); GFR 12.01
[2025-01-26 19:01] LABS: CREATININE SERUM 4.93 mg/dL (0.70-1.30)
[2025-01-27] VITALS (9 sets, daily range): BP systolic 133–165; BP diastolic 75–100; O2SAT 96–100
[2025-01-27 05:35] LABS: HEMATOCRIT 28.8 % (39.0-48.0); HEMOGLOBIN 10.2 g/dL (13-16.00); MEAN CORPUSCULAR HEMOGLOBIN 29.7 pg (27.00-32.0); MEAN CORPUSCULAR HGB CONC 35.4 g/dl (32.0-36.0); PLATELET COUNT 327 K/uL (150-450); RED BLOOD COUNT 3.43 M/uL (4.00-6.00); RED CELL DISTRIBUTION WIDTH 14.7 % (11.5-14.5)
[2025-01-27 05:50] LABS: ALBUMIN 1.8 gm/dL (3.4-5.0); ALKALINE PHOSPHATASE 88 U/L (50-136); ANION GAP 10 (10.0-20.0); AST/SGOT 23 U/L (15-37); BILIRUBIN TOTAL 0.41 mg/dL (0.3-1.2); BLOOD UREA NITROGEN 65 mg/dL (7-18); CARBON DIOXIDE 21 mEq/L (21-32); CHLORIDE 106 mmol/L (98-107); GLOBULINA 2.5 G/DL (2.4-3.5); GLUCOSE FASTING 179 mg/dL (65-100); OSMOLALITY SERUM 290 MOSM/KG (275-295); POTASSIUM 4.23 mEq/L (3.5-5.1); SODIUM 133 mmol/L (136-145); TOTAL PROTEIN 4.3 gm/dL (6.4-8.2)
[2025-01-27 06:07] LABS: ALT/SGPT < 6 U/L (12-78); BUN CREA RATIO 13 (7.0-25.0); GFR 12.18
[2025-01-27 06:08] LABS: CREATININE SERUM 4.87 mg/dL (0.70-1.30)
[2025-01-27 09:29] LABS: ABG PH 7.422 (7.35-7.45); ABG pCO2 28.6 mmHg (35-45); BASE EXCESS -4.7 mmol/l; BICARBONATE 18.2 mmol/l (23-25); SaO2 97.2 %
[2025-01-27 09:30] LABS: Tco2 19.1 mmol/l; allen test SATISFACTORY; o2 21 %; puncture site RADIAL RIGHT
[2025-01-27] MEDS ORDERED: FLUCONAZOLE 100 MG TABLET PO SCH (11:45)
[2025-01-27] MEDS ORDERED: MEROPENEM 500 MG/VIAL VIAL IV NR (12:00)
[2025-01-27] MEDS ORDERED: hydrALAZINE HCL 25 MG TABLET PO SCH (13:00)
[2025-01-27] MEDS ORDERED: AMLODIPINE BESYLATE 10 MG TABLET PO NR (13:00)
[2025-01-27] MEDS ORDERED: MEROPENEM 500 MG/VIAL VIAL IV SCH (21:00)
[2025-01-28] VITALS (11 sets, daily range): BP systolic 150–160; BP diastolic 80–86; O2SAT 97–100
[2025-01-28 08:25] LABS: CALCIUM 8.2 mg/dL (8.5-10.1); GFR 13.04; POTASSIUM 4.31 mEq/L (3.5-5.1)
[2025-01-28] MEDS ORDERED: AMLODIPINE BESYLATE 10 MG TABLET PO SCH (09:00)
[2025-01-28 10:20] LABS: CREATININE SERUM 4.59 mg/dL (0.70-1.30)
[2025-01-28] MEDS ORDERED: INSULIN NPH HUMAN ISOPHANE 1,000 UNITS/10 ML UNITS SUBCUTANEO SCH (21:00)
[2025-01-29] VITALS (9 sets, daily range): BP systolic 131–158; BP diastolic 76–87; O2SAT 97–100
[2025-01-29 07:52] LABS: ALBUMIN 1.9 gm/dL (3.4-5.0); ALKALINE PHOSPHATASE 83 U/L (50-136); ANION GAP 14 (10.0-20.0); AST/SGOT 18 U/L (15-37); BILIRUBIN TOTAL 0.37 mg/dL (0.3-1.2); BLOOD UREA NITROGEN 56 mg/dL (7-18); CALCIUM 8.2 mg/dL (8.5-10.1); CARBON DIOXIDE 20 mEq/L (21-32); CHLORIDE 107 mmol/L (98-107); GLOBULINA 2.5 G/DL (2.4-3.5); GLUCOSE FASTING 162 mg/dL (65-100); OSMOLALITY SERUM 293 MOSM/KG (275-295); POTASSIUM 4.35 mEq/L (3.5-5.1); SODIUM 137 mmol/L (136-145); TOTAL PROTEIN 4.4 gm/dL (6.4-8.2)
[2025-01-29 09:23] LABS: ALT/SGPT < 6 U/L (12-78); BUN CREA RATIO 13 (7.0-25.0); GFR 14.14
[2025-01-29 09:24] LABS: CREATININE SERUM 4.28 mg/dL (0.70-1.30)
== END 2025-01-29 21:41 | disposition home or self-care (01) | DRG 871 ==
LOC: ER 12:14 → ICU-2 19:50 → ICU 19:50 → MEDJ 01-12 18:44 → ICU 01-16 20:53 → MEDI 01-19 19:48
PROVIDERS: General Practice; Internal Medicine; Internal Medicine Critical Care Medicine; Internal Medicine Endocrinology, Diabetes & Metabolism; Internal Medicine Nephrology; ADMIT Student in an Organized Health Care Education/Training Program; ATTEND Student in an Organized Health Care Education/Training Program
PROC: 3E0F7GC Introduction of Other Therapeutic Substance into Respiratory Tract, Via Natural or Artificial Opening (ICD-10-PCS; 2025-01-10)
PROC: B020ZZZ Computerized Tomography (CT Scan) of Brain (ICD-10-PCS; 2025-01-10)
PROC: BB24ZZZ Computerized Tomography (CT Scan) of Bilateral Lungs (ICD-10-PCS; 2025-01-10)
PROC: BW21ZZZ Computerized Tomography (CT Scan) of Abdomen and Pelvis (ICD-10-PCS; 2025-01-10)
PROC: 4A12X4Z Monitoring of Cardiac Electrical Activity, External Approach (ICD-10-PCS; 2025-01-11)
PROC: 3E0336Z Introduction of Nutritional Substance into Peripheral Vein, Percutaneous Approach (ICD-10-PCS; 2025-01-11)
PROC: B020ZZZ Computerized Tomography (CT Scan) of Brain (ICD-10-PCS; 2025-01-11)
PROC: 0DH67UZ Insertion of Feeding Device into Stomach, Via Natural or Artificial Opening (ICD-10-PCS; 2025-01-11)
PROC: B030YZZ Magnetic Resonance Imaging (MRI) of Brain using Other Contrast (ICD-10-PCS; 2025-01-12)
PROC: BT43ZZZ Ultrasonography of Bilateral Kidneys (ICD-10-PCS; 2025-01-17)
PROC: 02HV33Z Insertion of Infusion Device into Superior Vena Cava, Percutaneous Approach (ICD-10-PCS; principal; 2025-01-18)
PROC: 3E0G76Z Introduction of Nutritional Substance into Upper GI, Via Natural or Artificial Opening (ICD-10-PCS; 2025-01-18)
DX: A41.9 Sepsis, unspecified organism (principal); E10.10 Type 1 diabetes mellitus with ketoacidosis without coma; G92.8 Other toxic encephalopathy; J69.0 Pneumonitis due to inhalation of food and vomit; N17.9 Acute kidney failure, unspecified; N39.0 Urinary tract infection, site not specified; F31.81 Bipolar II disorder; L03.011 Cellulitis of right finger; D69.6 Thrombocytopenia, unspecified; N18.30 Chronic kidney disease, stage 3 unspecified; E10.42 Type 1 diabetes mellitus with diabetic polyneuropathy; E86.0 Dehydration; E86.9 Volume depletion, unspecified; E87.6 Hypokalemia; E83.42 Hypomagnesemia; G20.C Parkinsonism, unspecified; F43.20 Adjustment disorder, unspecified; Z74.01 Bed confinement status; F19.10 Other psychoactive substance abuse, uncomplicated; B95.61 Methicillin susceptible Staphylococcus aureus infection as the cause of diseases classified elsewhere
CPT/HCPCS: 70545